=== PATIENT | female | born 1975 | race African-American/Black ===

== ENCOUNTER → 2020-07-19 | Outpatient (CLI) | payer BC ==
[2020-07-19 18:44] LABS: BASO % 0 % (0-3); EOS % 0 % (0-3); HEMATOCRIT 35.6 % (36.0-47.0); HEMOGLOBIN 11.3 g/dL (12.0-15.5); LYMPH # 1.7 x10^3/uL (1.0-4.8); LYMPH % 25 % (24-48); MEAN CORPUSCULAR HEMOGLOBIN 24 pg (25-35); MEAN CORPUSCULAR HGB CONC 32 g/dL (31-37); MEAN CORPUSCULAR VOLUME 77 fL (79-100); MONO # 0.5 x10^3/uL (0.0-1.1); MONO % 7 % (0-9); NEUT # 4.5 x10^3/uL (1.8-7.7); NEUT % 68 % (31-73); PLATELET COUNT 322 x10^3/uL (140-400); RED BLOOD COUNT 4.61 x10^6/uL (3.50-5.40); RED CELL DISTRIBUTION WIDTH 17.8 % (11.5-14.5); WHITE BLOOD COUNT 6.7 x10^3/uL (4.0-11.0)
[2020-07-19 18:47] LABS: FREE T4 1.02 ng/dL (0.76-1.46); THYROID STIM HORMONE (TSH) 2.682 uIU/mL (0.358-3.74)
== END | disposition home or self-care (01) ==
LOC: LAB 17:00
PROVIDERS: ATTEND Obstetrics & Gynecology
DX: Z01.419 Encounter for gynecological examination (general) (routine) without abnormal findings (principal); N92.0 Excessive and frequent menstruation with regular cycle
CPT/HCPCS: 36415; 84439; 84443; 85025

== ENCOUNTER → 2020-08-29 | Outpatient (CLI) | payer BC ==
[~2020-08-29] MED LIST: AMLO-186 PO; ASPI-630 PO; FURO20TA3 PO; INSU100V6 SQ; LISI-334 PO; MULT-496 PO; PRAV40TA2 PO
== END ==
LOC: LAB 14:31
PROVIDERS: ATTEND Obstetrics & Gynecology
DX: Z01.812 Encounter for preprocedural laboratory examination (principal); D25.9 Leiomyoma of uterus, unspecified; N92.0 Excessive and frequent menstruation with regular cycle; Z20.828 Contact with and (suspected) exposure to other viral communicable diseases
CPT/HCPCS: U0003-CS

== ENCOUNTER 2020-09-01 07:15 | Observation (INO) | payer BC ==
[~2020-09-01] VITALS: Ht 157.5 cm; Wt 96.0 kg
[2020-09-01] VITALS (9 sets, daily range): BP systolic 118–150; BP diastolic 62–84
[~2020-09-01 07:15] MED LIST changes: -AMLO-186 PO; -ASPI-630 PO; -FURO20TA3 PO; +HYDROmorphone 2 MG/ML VIAL IV PRN; -INSU100V6 SQ; +IV RINGERS,LACTATED 1000ML 1,000 ML IV SCH; +LIDOCAINE 1% PF 2 ML VIAL. ID PRN; -LISI-334 PO; +MORPHINE SULFATE 2 MG/ML VIAL. IV PRN; -MULT-496 PO; +ONDANSETRON PF 4 MG/2 ML VIAL. IV PRN; -PRAV40TA2 PO; +PROCHLORPERAZINE 10 MG/2 ML VIAL. IV PRN; +ceFAZolin SODIUM IV Push 1 GM VIAL. IVP PRN; +fentaNYL PF VIAL 100 MCG/2 ML VIAL IV PRN
[2020-09-01] MEDS ORDERED: ONDANSETRON PF 4 MG/2 ML VIAL. ONE (08:15)
[2020-09-01] MEDS ORDERED: LIDOCAINE 2% PF 5 ML VIAL. ONE (08:15)
[2020-09-01] MEDS ORDERED: PROPOFOL 10 MG/ML (20ML) VIAL. IV ONE (08:15)
[2020-09-01] MEDS ORDERED: DEXAMETHASONE SOD PHOS 4 MG/ML VIAL ONE (08:15)
[2020-09-01] MEDS ORDERED: ROCURONIUM 50 MG/5 ML VIAL. ONE (08:16)
[2020-09-01] MEDS ORDERED: SUCCINYLCHOLINE 200 MG/10 ML VIAL. ONE (08:16)
[2020-09-01] MEDS ORDERED: fentaNYL PF VIAL 100 MCG/2 ML VIAL ONE ×2 (08:17→09:28)
[2020-09-01] MEDS ORDERED: MIDAZOLAM HCL/PF 2 MG/2 ML VIAL. ONE (08:17)
[2020-09-01] MEDS ORDERED: INSU100V6 SQ (08:23)
[2020-09-01] MEDS ORDERED: AMLO-186 PO (08:23)
[2020-09-01] MEDS ORDERED: FURO20TA3 PO (08:23)
[2020-09-01] MEDS ORDERED: ASPI-630 PO (08:23)
[2020-09-01] MEDS ORDERED: LISI-334 PO (08:23)
[2020-09-01] MEDS ORDERED: PRAV40TA2 PO (08:23)
[2020-09-01] MEDS ORDERED: MULT-496 PO (08:23)
[2020-09-01] MEDS ORDERED: ESTROGENS, CONJ VAGINAL CREAM 30GM TUBE. ONE (08:33)
[2020-09-01] MEDS ORDERED: LIDOCAINE 1%/EPI 1:100,000 20 ML VIAL. ONE (08:33)
[2020-09-01] MEDS ORDERED: INDIGOTINDISULFONATE SODIUM 40 MG/5 ML AMPUL. ONE (08:33)
[2020-09-01] MEDS ORDERED: SURGICEL HEMOSTAT 4X8 EACH. ONE (08:33)
[2020-09-01] MEDS: IV RINGERS,LACTATED 1000ML 1,000 ML IV SCH ×2 (08:34→11:32)
[2020-09-01] MEDS ORDERED: BUPIVACAINE-EPI 0.25%-1:200000 MPF 30 ML VIAL. INJ ONE (08:45)
[2020-09-01 08:57] LABS: BASO % 1 % (0-3); EOS # 0.1 x10^3/uL (0.0-0.7); EOS % 1 % (0-3); HEMATOCRIT 33.5 % (36.0-47.0); HEMOGLOBIN 10.6 g/dL (12.0-15.5); LYMPH # 1.3 x10^3/uL (1.0-4.8); LYMPH % 19 % (24-48); MEAN CORPUSCULAR HEMOGLOBIN 25 pg (25-35); MEAN CORPUSCULAR HGB CONC 32 g/dL (31-37); MEAN CORPUSCULAR VOLUME 78 fL (79-100); MONO # 0.5 x10^3/uL (0.0-1.1); MONO % 7 % (0-9); NEUT # 4.9 x10^3/uL (1.8-7.7); NEUT % 72 % (31-73); PLATELET COUNT 274 x10^3/uL (140-400); RED CELL DISTRIBUTION WIDTH 16.6 % (11.5-14.5); WHITE BLOOD COUNT 6.8 x10^3/uL (4.0-11.0)
[2020-09-01] MEDS ORDERED: ceFAZolin SODIUM IV Push 1 GM VIAL. IVP ONE (09:08)
[2020-09-01] MEDS ORDERED: PHENYLEPHRINE in 0.9% NACL PF 1 MG/10 ML SYRINGE. IV ONE (09:19)
[2020-09-01 09:23] LABS: CALCIUM 8.9 mg/dL (8.5-10.1); GFR 73.2; POTASSIUM 3.7 mmol/L (3.5-5.1)
[2020-09-01] MEDS ORDERED: NEOSTIGMINE METHYLSULFATE 5 MG/5 ML SYRINGE. ONE (09:29)
[2020-09-01] MEDS ORDERED: GLYCOPYRROLATE 1 MG/5 ML VIAL. ONE (09:29)
[2020-09-01] MEDS ORDERED: SEVOFLURANE 61 TO 120 MINUTES. IH ONE (09:33)
[2020-09-01 09:36] LABS: ALBUMIN 3.7 g/dL (3.4-5.0); ALBUMIN/GLOBULIN RATIO 0.9 (1.0-1.7); TOTAL BILIRUBIN 0.3 mg/dL (0.2-1.0); TOTAL PROTEIN 7.6 g/dL (6.4-8.2)
--- NOTE | 2020-09-01 10:16 | PDOC ---
BRIEF OPERATIVE NOTE Date: Sep 01, 2020 Pre-Op Diagnosis 1. Menorrhagia 2. Fibroids 3. Fatigue Post-Op Diagnosis Same Procedure Performed [facility] Surgeon Dr. Gar Coating And Baking Operator Web Content Producer: Maurilio Anesthesia Type: General Blood Loss 25 ml Specimens Obtained cervix, uterus Findings enlarged, fibroid uterus, uterine adhesions to abd wall, nml ovaries jesus. Complications none Operative Note see dictation MARISA GAR Jr, MD Sep 01, 2020 10:16
[2020-09-01] MEDS ORDERED: diphenhydrAMINE HCL 25 MG CAPSULE PO PRN (10:30)
[2020-09-01] MEDS ORDERED: diphenhydrAMINE 50 MG/ML VIAL IV PRN (10:30)
[2020-09-01] MEDS ORDERED: PROCHLORPERAZINE 10 MG/2 ML VIAL. IV PRN (10:30)
[2020-09-01] MEDS ORDERED: ZOLPIDEM 5 MG TABLET. PO PRN (10:30)
[2020-09-01] MEDS ORDERED: OPIUM/BELLADONNA 30/16.2MG SUPP.RECT. PR PRN (10:30)
[2020-09-01] MEDS ORDERED: SIMETHICONE 80 MG TAB.CHEW PO PRN (10:30)
[2020-09-01] MEDS ORDERED: 0.9 % SODIUM CHLORIDE 10 ML DISP.SYRIN. IV PRN (10:30)
[2020-09-01] MEDS ORDERED: ONDANSETRON PF 4 MG/2 ML VIAL. IV PRN (10:30)
[2020-09-01] MEDS ORDERED: oxyCODONE/APAP 5/325 1 TAB TABLET PO PRN (10:30)
[2020-09-01] MEDS ORDERED: CALCIUM CARBONATE 500 MG TAB.CHEW PO PRN (10:30)
[2020-09-01] MEDS ORDERED: DEXTROSE 50% 25 GM / 50ML DISP.SYRIN. IV PRN ×2 (10:30→17:00)
--- NOTE | 2020-09-01 10:41 | OP ---
DATE OF SURGERY: PREOPERATIVE DIAGNOSES: 1. Menorrhagia. 2. Fibroids. 3. Fatigue. POSTOPERATIVE DIAGNOSES: 1. Menorrhagia. 2. Fibroids. 3. Fatigue. PROCEDURE: LAVH. SURGEON: Marisa Gar MD. MEAT WRAPPER: Maurilio. ANESTHESIA: GETA. ESTIMATED BLOOD LOSS: 25 mL. COMPLICATIONS: None. FINDINGS: Enlarged fibroid uterus, uterine adhesions to abdominal wall and normal ovaries bilaterally. SUMMARY: A 44-year-old female with long history of menorrhagia, unresponsive to any medical treatment, requiring hysterectomy. She was counseled on the risks, benefits and expectations and voiced clear understanding to proceed. DESCRIPTION OF PROCEDURE: The patient was taken to surgery suite and placed in dorsal lithotomy position. She was prepped with Betadine solution for vaginal prep and ChloraPrep for abdominal prep. After adequate anesthesia, weighted speculum and curved Union placed vaginally. Anterior lip of the cervix grasped with single tooth tenaculum. Valtchev uterine manipulator was placed. A weighted speculum and curved Dharmesh were then removed. Attention was now placed on abdomen. A small transverse skin incision was made just below the umbilicus with the scalpel. The Veress needle was then placed through the infraumbilical incision site. The abdomen was allowed to insufflate up to 1.5 liters CO2 gas. The Veress needle was then removed, 5 mm trocar was placed. Scope was positioned. Uterus was reviewed, which was enlarged with fibroids. There were also adhesions from the uterus to the abdominal wall. The ovaries appeared normal bilaterally. Two additional incisions were made in the left lower quadrant with a scalpel in which 5 mm trocars were placed. With aid of graspers and the EnSeal device, the right round ligament was coagulated and dissected. The right uteroovarian pedicle was coagulated and dissected. The right broad ligament was coagulated and dissected down to and including the right uterine artery. Bladder flap was partially created using EnSeal device. The left round ligament was then coagulated and dissected. The left uteroovarian pedicle was coagulated and dissected. The adhesion of the uterus to the abdominal wall was then coagulated and dissected using the EnSeal device as well. Left broad ligament and left uterine artery were both coagulated and dissected. The pedicles were reviewed and hemostatic. A small amount of normal saline was left in posterior cul-de-sac. We then proceeded vaginally. Weighted speculum and curved Union placed vaginally. The Valtchev uterine manipulator and single tooth tenaculum were removed. Cal clamps were placed on the anterior and posterior lip of the cervix. Cervix was injected with 1% lidocaine with epinephrine in a circumferential manner. Bovie cautery was utilized to circumscribe the cervix. The vaginal mucosa was dissected away from the lower uterine segment using a moist Ray-Chi. Parametrial tissue was clamped with curved Debi clamps bilaterally, cut, and suture ligated with 2-0 Vicryl suture. Posterior cul-de-sac was then entered sharply using curved Johnson scissors. Anterior cul-de-sac was entered bluntly. The uterosacral ligaments and cardinal ligaments were clamped bilaterally, cut, and suture ligated. The cervix and uterus were then removed in their entirety. A modified Walker's culdoplasty incorporating the uterosacral ligaments was performed using 0 Vicryl suture. The remainder of the vaginal cuff was reapproximated using 2-0 Vicryl suture in [id number] manner. Moist vaginal packing was placed. We then proceeded anteriorly. The abdomen was insufflated with 1.5 liters CO2 gas. The scope was positioned. The pedicles were all hemostatic. Suction irrigation was utilized to verify this. Small amount of normal saline was left in posterior cul-de-sac. The trocars were then removed under direct visualization. The abdomen was allowed to deflate as much as possible along with mechanical manipulation. The 3 skin incisions were reapproximated using 4-0 Vicryl suture in subcuticular manner. A 0.25% Marcaine with epinephrine was injected at each incision site. The patient tolerated the procedure well and was taken to recovery room in stable condition. Sponge and needle count correct x 3. MARISA GAR MD DR: YOLANDA/ida JOB#: [id number] / [id number]
[2020-09-01] MEDS: KETOROLAC 30 MG/ML VIAL. IV PRN ×2 (13:51→19:58)
[2020-09-01] MEDS ORDERED: GABAPENTIN 300 MG CAPSULE. PO SCH (14:00)
--- NOTE | 2020-09-01 18:41 | NUR ---
pt took her own insulin and okayed by dr merlos
[2020-09-01] MEDS: INSULIN LISPRO 300 UNITS/3 ML VIAL. SQ SCH (21:36)
[2020-09-02] VITALS: BP 115/71
[2020-09-02 04:00] VITALS: BP 128/74
[2020-09-02] MEDS: KETOROLAC 30 MG/ML VIAL. IV PRN (04:27)
[2020-09-02 07:30] LABS: BASO % 0 % (0-3); EOS % 0 % (0-3); HEMATOCRIT 32.8 % (36.0-47.0); HEMOGLOBIN 10.5 g/dL (12.0-15.5); LYMPH # 1.6 x10^3/uL (1.0-4.8); LYMPH % 18 % (24-48); MEAN CORPUSCULAR HEMOGLOBIN 25 pg (25-35); MEAN CORPUSCULAR HGB CONC 32 g/dL (31-37); MEAN CORPUSCULAR VOLUME 78 fL (79-100); MONO # 0.6 x10^3/uL (0.0-1.1); MONO % 7 % (0-9); NEUT # 6.9 x10^3/uL (1.8-7.7); NEUT % 75 % (31-73); PLATELET COUNT 252 x10^3/uL (140-400); RED CELL DISTRIBUTION WIDTH 16.6 % (11.5-14.5); WHITE BLOOD COUNT 9.1 x10^3/uL (4.0-11.0)
[2020-09-02 08:00] VITALS: BP 123/48
[2020-09-02] MEDS: INSULIN LISPRO 300 UNITS/3 ML VIAL. SQ SCH (12:06)
[2020-09-02 12:10] VITALS: BP 110/73
--- NOTE | 2020-09-02 12:46 | PDOC ---
SURGICAL PROGRESS NOTE DATE: 09/02/20 TIME: 12:45 Subjective PT. feeling better. Pain better controlled. She is tolerating regular diet, ambulating and voiding without complications. Vital Signs Vital Signs Date Time Temp Pulse Resp B/P (MAP) Pulse Ox O2 Delivery O2 Flow Rate FiO2 09/02/20 10:36 18 Room Air 09/02/20 08:00 98.1 123/48 (73) 96 98.1 09/02/20 04:00 82 09/01/20 10:53 6 I&O Intake and Output 09/02/20 07:00 Intake Total 1200 ml Output Total 2700 ml Balance -1500 ml Intake Oral 200 ml IV Total 1000 ml Output Urine Total 2675 ml Estimated Blood Loss 25 ml PATIENT HAS A BEEBE: No General: Alert, Oriented X3, Cooperative HEENT: Atraumatic Lungs: Clear to auscultation Heart: Regular rate Abdomen: Normal bowel sounds, Soft, No masses Psych/Mental Status: Mental status NL Labs Laboratory Tests Test 09/01/20 07:50 09/01/20 07:56 09/01/20 08:42 09/01/20 08:46 Glucose (Fingerstick) 125 mg/dL (70-99) 121 mg/dL (70-99) Bedside Urine HCG, Qualitative Hcg negative (Negative) White Blood Count 6.8 x10^3/uL (4.0-11.0) Red Blood Count 4.30 x10^6/uL (3.50-5.40) Hemoglobin 10.6 g/dL (12.0-15.5) Hematocrit 33.5 % (36.0-47.0) Mean Corpuscular Volume 78 fL (79-100) Mean Corpuscular Hemoglobin 25 pg (25-35) Mean Corpuscular Hemoglobin Concent 32 g/dL (31-37) Red Cell Distribution Width 16.6 % (11.5-14.5) Platelet Count 274 x10^3/uL (140-400) Neutrophils (%) (Auto) 72 % (31-73) Lymphocytes (%) (Auto) 19 % (24-48) Monocytes (%) (Auto) 7 % (0-9) Eosinophils (%) (Auto) 1 % (0-3) Basophils (%) (Auto) 1 % (0-3) Neutrophils # (Auto) 4.9 x10^3/uL (1.8-7.7) Lymphocytes # (Auto) 1.3 x10^3/uL (1.0-4.8) Monocytes # (Auto) 0.5 x10^3/uL (0.0-1.1) Eosinophils # (Auto) 0.1 x10^3/uL (0.0-0.7) Basophils # (Auto) 0.0 x10^3/uL (0.0-0.2) Sodium Level 138 mmol/L (136-145) Potassium Level 3.7 mmol/L (3.5-5.1) Chloride Level 102 mmol/L (98-107) Carbon Dioxide Level 26 mmol/L (21-32) Anion Gap 10 (6-14) Blood Urea Nitrogen 16 mg/dL (7-20) Creatinine 1.0 mg/dL (0.6-1.0) Estimated GFR (Cockcroft-Gault) 73.2 BUN/Creatinine Ratio 16 (6-20) Glucose Level 111 mg/dL (70-99) Calcium Level 8.9 mg/dL (8.5-10.1) Total Bilirubin 0.3 mg/dL (0.2-1.0) Aspartate Amino Transf (AST/SGOT) 21 U/L (15-37) Alanine Aminotransferase (ALT/SGPT) 21 U/L (14-59) Alkaline Phosphatase 88 U/L (46-116) Total Protein 7.6 g/dL (6.4-8.2) Albumin 3.7 g/dL (3.4-5.0) Albumin/Globulin Ratio 0.9 (1.0-1.7) Test 09/01/20 11:16 09/01/20 16:44 09/01/20 21:05 09/02/20 06:50 Glucose (Fingerstick) 147 mg/dL (70-99) 284 mg/dL (70-99) 268 mg/dL (70-99) White Blood Count 9.1 x10^3/uL (4.0-11.0) Red Blood Count 4.20 x10^6/uL (3.50-5.40) Hemoglobin 10.5 g/dL (12.0-15.5) Hematocrit 32.8 % (36.0-47.0) Mean Corpuscular Volume 78 fL (79-100) Mean Corpuscular Hemoglobin 25 pg (25-35) Mean Corpuscular Hemoglobin Concent 32 g/dL (31-37) Red Cell Distribution Width 16.6 % (11.5-14.5) Platelet Count 252 x10^3/uL (140-400) Neutrophils (%) (Auto) 75 % (31-73) Lymphocytes (%) (Auto) 18 % (24-48) Monocytes (%) (Auto) 7 % (0-9) Eosinophils (%) (Auto) 0 % (0-3) Basophils (%) (Auto) 0 % (0-3) Neutrophils # (Auto) 6.9 x10^3/uL (1.8-7.7) Lymphocytes # (Auto) 1.6 x10^3/uL (1.0-4.8) Monocytes # (Auto) 0.6 x10^3/uL (0.0-1.1) Eosinophils # (Auto) 0.0 x10^3/uL (0.0-0.7) Basophils # (Auto) 0.0 x10^3/uL (0.0-0.2) Test 09/02/20 08:02 09/02/20 11:56 Glucose (Fingerstick) 91 mg/dL (70-99) 179 mg/dL (70-99) Laboratory Tests Test 09/01/20 16:44 09/01/20 21:05 09/02/20 06:50 09/02/20 08:02 Glucose (Fingerstick) 284 mg/dL (70-99) 268 mg/dL (70-99) 91 mg/dL (70-99) White Blood Count 9.1 x10^3/uL (4.0-11.0) Red Blood Count 4.20 x10^6/uL (3.50-5.40) Hemoglobin 10.5 g/dL (12.0-15.5) Hematocrit 32.8 % (36.0-47.0) Mean Corpuscular Volume 78 fL (79-100) Mean Corpuscular Hemoglobin 25 pg (25-35) Mean Corpuscular Hemoglobin Concent 32 g/dL (31-37) Red Cell Distribution Width 16.6 % (11.5-14.5) Platelet Count 252 x10^3/uL (140-400) Neutrophils (%) (Auto) 75 % (31-73) Lymphocytes (%) (Auto) 18 % (24-48) Monocytes (%) (Auto) 7 % (0-9) Eosinophils (%) (Auto) 0 % (0-3) Basophils (%) (Auto) 0 % (0-3) Neutrophils # (Auto) 6.9 x10^3/uL (1.8-7.7) Lymphocytes # (Auto) 1.6 x10^3/uL (1.0-4.8) Monocytes # (Auto) 0.6 x10^3/uL (0.0-1.1) Eosinophils # (Auto) 0.0 x10^3/uL (0.0-0.7) Basophils # (Auto) 0.0 x10^3/uL (0.0-0.2) Test 09/02/20 11:56 Glucose (Fingerstick) 179 mg/dL (70-99) Assessment/Plan A: POD#1 s/p LAVH P: D/c home. Justicifation of Admission Dx: Justifications for Admission: Justification of Admission Dx: Yes MARISA WOODARD Jr, MD Sep 02, 2020 12:46
[2020-09-02] MEDS ORDERED: DOCU-109 PO (12:48)
[2020-09-02] MEDS ORDERED: OXYC1TAB15 PO (12:48)
[2020-09-02] MEDS ORDERED: IBUP-1060 PO (12:48)
--- NOTE | 2020-09-02 12:49 | DISCH ---
DISCHARGE INSTRUCTIONS Condition on Discharge Condition on Discharge: Stable Activity After Discharge Activity Instructions for Disc: Activity as tolerated Lifting Instructions after Dis: No heavy lifting Driving Instructions after Dis: No driving for 2 weeks Diet after Discharge Diet after Discharge: Diabetic No Calorie Level Contacting the after DC Call your doctor for: Concerns you may have Follow-Up Follow up with: Dr. Gar in 2 wks MARISA GAR Jr, MD Sep 02, 2020 12:49
[2020-09-02] MEDS ORDERED: FLU VACC QS 2020-21(6MOS+)/PF 0.5 ML SYRINGE. VAX IM ONE (13:30)
[2020-09-02 13:50] VITALS: BP 99/54
[2020-09-02] MEDS ORDERED: amLODIPine BESYLATE 5 MG TABLET PO SCH (21:00)
[2020-09-03] MEDS ORDERED: IV RINGERS,LACTATED 1000ML 1,000 ML IV SCH (07:00)
== END 2020-09-02 14:10 | disposition home or self-care (01) ==
LOC: SURG 07:15 → 3 NORTH 10:16 → OBSVTOIN 10:16 → INTOOBSV 10:16
PROVIDERS: ADMIT Obstetrics & Gynecology; ATTEND Obstetrics & Gynecology
DX: D25.9 Leiomyoma of uterus, unspecified (principal); N92.0 Excessive and frequent menstruation with regular cycle; K66.0 Peritoneal adhesions (postprocedural) (postinfection); R53.83 Other fatigue
CPT/HCPCS: 36415; 58550; 80053; 81025; 82962; 85025; 86850; 86900; 86901; 88307; 96372; 96374; 96375; 96376; G0378; G0379; J0330; J0690; J1100; J1815; J1885; J2250; J2370; J2405; J2704; J2710; J3010; J3490; J7030

== ENCOUNTER 2021-06-09 19:19 | Emergency (ER) | payer BC, OTHER ==
[~2021-06-09] VITALS: Ht 152.4 cm; Wt 81.8 kg
[~2021-06-09 19:19] MED LIST changes: +AMLO-186 PO; +ASPI-630 PO; +DOCU-109 PO; +FURO20TA3 PO; -HYDROmorphone 2 MG/ML VIAL IV PRN; +IBUP-1060 PO; +INSU100V6 SQ; -IV RINGERS,LACTATED 1000ML 1,000 ML IV SCH; -LIDOCAINE 1% PF 2 ML VIAL. ID PRN; +LISI20TA18 PO; -MORPHINE SULFATE 2 MG/ML VIAL. IV PRN; +MULT-496 PO; -ONDANSETRON PF 4 MG/2 ML VIAL. IV PRN; +OXYC1TAB15 PO; +PRAV40TA2 PO; -PROCHLORPERAZINE 10 MG/2 ML VIAL. IV PRN; -ceFAZolin SODIUM IV Push 1 GM VIAL. IVP PRN; -fentaNYL PF VIAL 100 MCG/2 ML VIAL IV PRN
[2021-06-09] MEDS ORDERED: DEXTROSE 50% 25 GM / 50ML DISP.SYRIN. IV ONE (19:22)
[2021-06-09 19:23] VITALS: BP 99/54
[2021-06-09] MEDS ORDERED: DEXTROSE ORAL GEL 15 GM TUBE. ONE (19:31)
--- NOTE | 2021-06-09 19:54 | PHYS DOC ---
Past Medical History Past Medical History: Diabetes-Type I Past Surgical History: Hysterectomy General Adult EDM: Chief Complaint: HYPOGLYCEMIA HPI: HPI: Patient is a 45 year old female with history of type 1 diabetes who presents with slurred speech and altered mental status. Patient was in her normal state of health today. She was with her when she began to have slurred speech and became sleepy. He brought her immediately to the emergency department. Her glucose was found to be 22 triage. states that she takes long-acting insulin once a day. Usually in the morning. He confirms that she only had eggs and cortez today. Has not had any carbohydrates. She was otherwise feeling well prior to this episode. Denies any intentional insulin overdose. Review of Systems: Review of Systems: Constitutional: Denies fever or chills. [] Eyes: Denies change in visual acuity. [] HENT: Denies nasal congestion or sore throat. [] Respiratory: Denies cough or shortness of breath. [] Cardiovascular: Denies chest pain or edema. [] GI: Denies abdominal pain, nausea, vomiting, bloody stools or diarrhea. [] : Denies dysuria. [] Musculoskeletal: Denies back pain or joint pain. [] Integument: Denies rash. [] Neurologic: + Slurred speech and altered mental status. Denies headache, focal weakness or sensory changes. [] Endocrine: Denies polyuria or polydipsia. [] Lymphatic: Denies swollen glands. [] Psychiatric: Denies depression or anxiety. [] Heart Score: C/O Chest Pain: N/A Risk Factors: Risk Factors: DM, Current or recent (<one month) smoker, HTN, HLP, family history of CAD, obesity. Risk Scores: Score 0 - 3: 2.5% MACE over next 6 weeks - Discharge Home Score 4 - 6: 20.3% MACE over next 6 weeks - Admit for Clinical Observation Score 7 - 10: 72.7% MACE over next 6 weeks - Early Invasive Strategies Family History: Family History: No pertinent family history Current Medications: Current Medications Medications (Trade) Dose Ordered Sig/Braulio Start Time Stop Time Status Last Admin Dose Admin Dextrose (Dextrose 50%-Water Syringe) 25 gm STK-MED ONCE 06/09/21 19:22 06/09/21 19:23 DC Glucose (Insta-Glucose) 15 gm STK-MED ONCE 06/09/21 19:31 06/09/21 19:31 DC Allergies: Allergies: Allergies Coded Allergies Type Severity Reaction Last Updated Verified No Known Drug Allergies 09/01/20 No Physical Exam: PE: Constitutional: Eyes closed, slurred speech, inattentive. [] HENT: Normocephalic, atraumatic, bilateral external ears normal, oropharynx moist, no oral exudates, nose normal. [] Eyes: PERRLA, EOMI, conjunctiva normal, no discharge. [] Neck: Normal range of motion, no tenderness, supple, no stridor. [] Cardiovascular:Heart rate regular rhythm, no murmur [] Lungs & Thorax: Bilateral breath sounds clear to auscultation [] Abdomen: Bowel sounds normal, soft, no tenderness, no masses, no pulsatile masses. [] Skin: Warm, dry, no erythema, no rash. [] Back: No tenderness, no CVA tenderness. [] Extremities: No tenderness, no cyanosis, no clubbing, ROM intact, no edema. [] Neurologic: Eyes closed, moving all extremities. Slurred speech. Inattentive. No focal deficits. [] Psychologic: Affect normal, judgement normal, mood normal. [] Current Patient Data: Labs: Laboratory Tests Test 06/09/21 19:30 Glucose (Fingerstick) 14 mg/dL (70-99) *L Vital Signs: Vital Signs Date Time Temp Pulse Resp B/P (MAP) Pulse Ox O2 Delivery O2 Flow Rate FiO2 06/09/21 19:23 97.7 94 16 99/54 (69) 97 Room Air 97.7 EKG: EKG: Sinus rhythm. Rate 91. MO borderline prolonged at 118. QRS 72. QTc 457. Normal axis. No acute ischemic changes. [] Radiology/Procedures: Radiology/Procedures: na Course & Med Decision Making: Course & Med Decision Making Pertinent Labs and Imaging studies reviewed. (See chart for details) Patient is a 45-year-old female with type 1 diabetes on long-acting insulin once daily. Last dose was this morning. She did not eat any carbohydrates today, only having eggs and cortez. This afternoon became somewhat altered and sleepy with slurred speech. Was brought to the emergency department found to have a blood glucose of 22. She received several containers of juice, and still had decreased glucose down to 14. Vital signs rather stable. Several attempts at IV access in the arms failed. Had a left EJ placed by nursing staff, and to amps of D50 were infused. Her mental status rapidly improved. We will continue to monitor and check basic lab work. If she is able to eat complex carbs here and her glucose stays stable, feel that she can likely be discharged home. 1952 Patient is doing much better. Glucoses now are covered. She is eating a low carbohydrate dinner. We will continue to monitor for another 1-2 hours and if still stable feel she can be discharged home. Patient understands that she is to eat carbs after taking insulin. She will schedule follow-up appoint with her primary care doctor discuss her insulin regimen. 2035 Omar Disclaimer: Omar Disclaimer: This electronic medical record was generated, in whole or in part, using a voice recognition dictation system. Departure Departure Impression: Primary Impression: Hypoglycemia Disposition: HOME / SELF CARE / HOMELESS Condition: IMPROVED Referrals: ANIA KIDD MD (PCP) Schedule follow-up appointment next week to discuss your insulin regimen. Additional Instructions: Your blood glucose was very low. This is likely because you did not have any carbohydrates after taking your daily insulin. It is important to take in carbs after taking insulin. Please follow-up with Dr. Velazquez, to discuss her insulin regimen. If you have recurrent symptoms please return to the emergency department for reevaluation. CORI ALLEN MD Jun 09, 2021 19:54
[2021-06-09 20:01] LABS: BASO % 0 % (0-3); EOS % 0 % (0-3); HEMATOCRIT 31.3 % (36.0-47.0); HEMOGLOBIN 10.1 g/dL (12.0-15.5); LYMPH # 0.8 x10^3/uL (1.0-4.8); LYMPH % 10 % (24-48); MEAN CORPUSCULAR HEMOGLOBIN 26 pg (25-35); MEAN CORPUSCULAR HGB CONC 32 g/dL (31-37); MEAN CORPUSCULAR VOLUME 81 fL (79-100); MONO # 0.6 x10^3/uL (0.0-1.1); MONO % 8 % (0-9); NEUT # 6.8 x10^3/uL (1.8-7.7); NEUT % 82 % (31-73); PLATELET COUNT 240 x10^3/uL (140-400); RED BLOOD COUNT 3.85 x10^6/uL (3.50-5.40); RED CELL DISTRIBUTION WIDTH 14.9 % (11.5-14.5); WHITE BLOOD COUNT 8.3 x10^3/uL (4.0-11.0)
[2021-06-09 20:10] LABS: CALCIUM 7.8 mg/dL (8.5-10.1); GFR 72.9; POTASSIUM 3.3 mmol/L (3.5-5.1)
[2021-06-09 20:16] LABS: ALBUMIN/GLOBULIN RATIO 0.9 (1.0-1.7); TOTAL BILIRUBIN 0.2 mg/dL (0.2-1.0); TOTAL PROTEIN 6.4 g/dL (6.4-8.2)
--- NOTE | 2021-06-10 02:07 | EKG ---
[facility] [address] [place] [address] Test Date: 2021-06-09 Test Time: 20:00:41 Pat Name: FAN DUMONT Department: Room: Gender: F Theater Teacher: : 1975 Requested By: CORI ALLEN Order Number: [id number] Reading MD: Measurements Intervals [place] Rate: 91 P: 43 CA: 118 QRS: 24 QRSD: 72 T: 29 QT: 370 QTc: 457 Interpretive Statements SINUS RHYTHM NORMAL ECG RI6.02 No previous ECG available for comparison
== END 2021-06-09 21:24 | disposition home or self-care (01) ==
LOC: ER 19:19
DX: E10.649 Type 1 diabetes mellitus with hypoglycemia without coma (principal)
CPT/HCPCS: 36415; 80053; 82962; 85025; 93005; 99284